=== PATIENT | female | born 1985 | race Caucasian/White ===

== ENCOUNTER 2021-08-11 18:00 | Emergency (ER) | payer BC ==
[2021-08-11] MEDS ORDERED: DIAZEPAM 5 MG TABLET ONE (19:56)
[2021-08-11] MEDS ORDERED: HYDROCODONE/APAP 5/325 MG TAB ONE (19:57)
[2021-08-11 20:20] LABS: Urine Blood Trace-intact (Negative); Urine Glucose Negative (Negative); Urine Protein Negative (Negative); Urine Specific Gravity >=1.030 (1.005-1.030); Urine pH 5.5 (5.0-7.0)
--- NOTE | 2021-08-11 21:28 | ER ---
Nurse's Notes [facility] Name: Rosetta Warner Age: 36 yrs Sex: Female : 1985 Arrival Date: 08/11/2021 Time: 18:03 Bed 25 [facility] MD: Diagnosis: Sciatica;Low back pain Presentation: 08/11 18:18 Chief complaint: Patient states: I hurt my back this afternoon around 12. It was jb4 hurting some last night, but today I picked up my son and that's when I really hurt it. Coronavirus screen: At this time, the client does not indicate any symptoms associated with coronavirus-19. Ebola Screen: No symptoms or risks identified at this time. Initial Sepsis Screen: Does the patient meet any 2 criteria? No. Patient's initial sepsis screen is negative. Does the patient have a suspected source of infection? No. Patient's initial sepsis screen is negative. Risk Assessment: Do you want to hurt yourself or someone else? Patient reports no desire to harm self or others. Onset of symptoms was August 11, 2021. Transition of care: patient was not received from another setting of care. 18:18 Method Of Arrival: Wheelchair 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 - Social history:: Smoking status: Patient denies any tobacco usage or history of. Screenin:59 Abuse screen: Denies threats or abuse. Nutritional screening: No deficits noted. ll3 Tuberculosis screening: No symptoms or risk factors identified. Fall Risk None identified. No fall in past 12 months (0 pts). No secondary diagnosis (0 pts). No IV (0 pts). Ambulatory Aid- None/Bed Rest/Nurse Assist (0 pts). Gait- Normal/Bed Rest/Wheelchair (0 pts) Mental Status- Oriented to own ability (0 pts). Total Alvarado Fall Scale indicates No Risk (0-24 pts). Assessment: 19:59 General: Appears in no apparent distress. uncomfortable, Behavior is calm, cooperative. ll3 Pain: Complains of pain in right low back and left low back Pain currently is 8 out of 10 on a pain scale. Pain began 12 PM Is continuous. Neuro: Level of Consciousness is awake, alert, obeys commands, Oriented to person, place, time, situation. Respiratory: No deficits noted. Derm: No deficits noted. Musculoskeletal: Circulation, motion, and sensation intact. Pt ambulating to bathroom independently Reports pain in right low back and left low back since 12 pm. Pain is 8 out of 10 on a pain scale. States picked up baby wrong. Vital Signs: 18:19 BP 112 / 82; Pulse 98; Resp 16; Temp 97.0; Pulse Ox 98% on R/A; Weight 86.18 kg (R); jb4 Height 5 ft. 3 in. (160.02 cm) (R); Pain 8/10; 20:03 BP 115 / 81; Pulse 58; Resp 17; Pulse Ox 100% on R/A; ll3 21:45 BP 110 / 82; Pulse 62; Resp 18; Pulse Ox 100% on R/A; ll3 18:19 Body Mass Index 33.66 (86.18 kg, 160.02 cm) jb4 ED Course: 18:03 Patient arrived in ED. mr 18:03 Vin Sheehan DO is Attending Physician. ms3 18:19 Triage completed. jb4 18:23 Arm band placed on right wrist. jb4 19:11 Attending Physician role handed off by Vin Sheehan DO ms3 19:11 Giancarlo Santiago MD is Attending Physician. ms3 19:58 Renetta Lynn, VASQUEZ is Primary Nurse. ll3 19:59 Patient has correct armband on for positive identification. ll3 19:59 No provider procedures requiring assistance completed. ll3 22:02 Patient did not have IV access during this emergency room visit. ll3 Administered Medications: 19:59 Drug: HYDROcodone-acetaminophen 5 mg-325 mg 1 tabs Route: PO; ll3 22:03 Follow up: Response: No adverse reaction; Marked relief of symptoms ll3 19:59 Drug: Valium (diazepam) 5 mg Route: PO; ll3 22:03 Follow up: Response: No adverse reaction; Marked relief of symptoms ll3 Medication: 19:59 VIS not applicable for this client. ll3 Outcome: 21:27 Discharge ordered by . elizabeth 22:02 Discharged to home ambulatory, with significant other. ll3 22:02 Condition: stable 22:02 Discharge instructions given to patient, significant other, Instructed on discharge instructions, follow up and referral plans. medication usage, Demonstrated understanding of instructions, follow-up care, medications, Prescriptions given X 2. 22:03 Patient left the ED. ll3 Signatures: Gianna Cid James, RN RN jb4 Vin Sheehan DO DO ms3 Giancarlo Santiago MD MD 7 Renetta Lynn RN RN 3
--- NOTE | 2021-08-11 21:28 | EDPHYS ---
Physician Documentation [facility] Name: Rosetta Warner Age: 36 yrs Sex: Female : 1985 Arrival Date: 08/11/2021 Time: 18:03 Bed 25 Private MD: ED Physician Giancarlo Santiago HPI: 08/11 18:51 This 36 yrs old Female presents to ER via Wheelchair with complaints of Back Pain. ms3 18:51 The patient presents with pain that is acute. The symptoms are located in the low back. ms3 Onset: The symptoms/episode began/occurred today. The pain does not radiate. Associated signs and symptoms: Pertinent negatives: incontinence, numbness, tingling, urinary retention, weakness. The problem was sustained when lifting child. Modifying factors: The patient symptoms are alleviated by nothing, the patient symptoms are aggravated by movement. Severity of symptoms: At their worst the symptoms were severe, in the emergency department the symptoms are unchanged. Patient states she was picking up her child and developed back pain.. 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 - Social history:: Smoking status: Patient denies any tobacco usage or history of. ROS: 18:51 Constitutional: Negative for fever, and chills. Neck: Negative for injury, pain, and ms3 swelling, Cardiovascular: Negative for chest pain, and palpitations. Respiratory: Negative for shortness of breath, cough, wheezing, and pleuritic chest pain, Abdomen/GI: Negative for abdominal pain, nausea, vomiting, diarrhea, and constipation, MS/Extremity: Negative for injury and deformity, Skin: Negative for injury, rash, and discoloration. 18:51 Back: Positive for pain with movement. 18:51 All other systems are negative. Exam: 18:51 Constitutional: This is a well developed, well nourished patient who is awake, alert, ms3 and in no acute distress. Head/Face: Normocephalic, atraumatic. Neck: Trachea midline, no cervical lymphadenopathy. Supple, full range of motion without nuchal rigidity, or vertebral point tenderness. No Meningismus. Chest/axilla: Normal chest wall appearance and motion. Nontender with no deformity. Cardiovascular: Regular rate and rhythm with a normal S1 and S2. No gallops, murmurs, or rubs. Normal PMI, no JVD. No pulse deficits. Respiratory: Lungs have equal breath sounds bilaterally, clear to auscultation and percussion. No rales, rhonchi or wheezes noted. No increased work of breathing, no retractions or nasal flaring. Abdomen/GI: Soft, non-tender, with normal bowel sounds. No distension or tympany. No guarding or rebound. No evidence of tenderness throughout. 18:51 Back: pain, that is moderate, ROM is painful, normal spinal alignment noted, muscle spasm, is appreciated in the left low back and right low back. Vital Signs: 18:19 BP 112 / 82; Pulse 98; Resp 16; Temp 97.0; Pulse Ox 98% on R/A; Weight 86.18 kg (R); jb4 Height 5 ft. 3 in. (160.02 cm) (R); Pain 8/10; 20:03 BP 115 / 81; Pulse 58; Resp 17; Pulse Ox 100% on R/A; ll3 21:45 BP 110 / 82; Pulse 62; Resp 18; Pulse Ox 100% on R/A; ll3 18:19 Body Mass Index 33.66 (86.18 kg, 160.02 cm) jb4 MDM: 18:08 Patient medically screened. ms3 18:51 Differential diagnosis: sprain, muscle spasm vs DDD. ms3 19:10 Transition of care: After a detail discussion of the patient's case, care is ms3 transferred to Giancarlo Santiago MD. 21:24 Data reviewed: vital signs, nurses notes, lab test result(s), urinalysis, UPT: mh7 negative. Data interpreted: Pulse oximetry: on room air is 100 %. Interpretation: normal. Counseling: I had a detailed discussion with the patient and/or guardian regarding: the historical points, exam findings, and any diagnostic results supporting the discharge/admit diagnosis, lab results, the need for outpatient follow up, to return to the emergency department if symptoms worsen or persist or if there are any questions or concerns that arise at home. Response to treatment: the patient's symptoms have markedly improved after treatment. ED course: Feels better, well appearing, NAD, VSS, NVI, no focal neurological deficits. Ambulating around ER and tolerating PO intake. Patient ready for discharge home.. 08/11 20:20 Order name: Urine Dipstick-Ancillary; Complete Time: 20:31 EDMS 08/11 20:08 Order name: Urine Dipstick-Ancillary (obtain specimen); Complete Time: 20:33 7 08/11 20:08 Order name: Urine Test (obtain specimen); Complete Time: 20:33 [facility] Administered Medications: 19:59 Drug: HYDROcodone-acetaminophen 5 mg-325 mg 1 tabs Route: PO; ll3 22:03 Follow up: Response: No adverse reaction; Marked relief of symptoms 3 19:59 Drug: Valium (diazepam) 5 mg Route: PO; ll3 22:03 Follow up: Response: No adverse reaction; Marked relief of symptoms 3 Disposition Summary: 08/11/21 21:27 Discharge Ordered Location: Home [facility] Problem: an acute exacerbation [facility] Symptoms: have improved [facility] Condition: Stable [facility] Diagnosis - Sciatica [facility] - Low back pain [facility] Followup: [facility] - With: Private Physician - When: 1 - 2 days - Reason: Worsening of condition, Recheck today's complaints, Continuance of care, Re-evaluation by your physician Discharge Instructions: - Discharge Summary Sheet [facility] - Back Injury Prevention, [id number] [facility] - Sciatica, [id number] [facility] Forms: - Medication Reconciliation Form [facility] - Thank You Letter [facility] - Antibiotic Education [facility] - Prescription Opioid Use [facility] Prescriptions: - ketorolac 10 mg Oral tablet - take 1 tablet by ORAL route every 6-8 hours As needed not to exceed 40 mg in 7 24hrs; 15 tablet; Refills: 0, Product Selection Permitted - Cyclobenzaprine 10 mg Oral Tablet - take 1 tablet by ORAL route every 8 hours As needed; 30 tablet; Refills: 0, 7 Product Selection Permitted Signatures: Vaibhav Cohen RN RN jb4 Vin Sheehan DO DO ms3 Giancarlo Santiago MD MD 7 Loubet, Lynsea, RN RN ll3
[2021-08-11 22:43] VITALS: TEMP 97
[2021-08-11 22:45] VITALS: BP 115/81; O2SAT 100
== END 2021-08-11 22:03 | disposition home or self-care (01) ==
LOC: ER 18:00
DX: M54.30 Sciatica, unspecified side (principal); F32.A Depression, unspecified; Z88.0 Allergy status to penicillin
CPT/HCPCS: 81003; 99283